=== PATIENT | male | born 1940 | race Caucasian/White ===

== ENCOUNTER 2018-10-26 12:19 | Inpatient (IN) | payer OTHER, MEDICAID ==
[~2018-10-26] VITALS: Ht 157.5 cm; Wt 53.1 kg
[2018-10-26 12:19] VITALS: BP_SYST 101
--- NOTE | 2018-10-26 12:20 | NUR ---
BROUGHT IN BY [facility], PLACED IN BED #2 AND TRIAGED. REPORT GIVEN TO RUBY
--- NOTE | 2018-10-26 12:22 | NUR ---
Pt bib EMS from [facility] for evaluation of abdnormal lab values.
--- NOTE | 2018-10-26 12:51 | NUR ---
calling joshua turner to inform them physician who sent pt over does not have privileges here, calling to see if needed who would we call for admission. Joshua Turner RN will call back to inform who will admit pt if needed. spoke to rosey
[2018-10-26 13:48] LABS: INR 1.1 (0.80-1.20)
[2018-10-26 14:00] LABS: BASOPHILS # (AUTO) 0.1 K/uL (0.0-0.2); BASOPHILS % (AUTO) 0.3 % (0.0-2.0); EOSINOPHILS # (AUTO) 0.2 K/uL (0.0-0.4); HEMATOCRIT 56.5 % (36-54); HEMOGLOBIN 18.6 g/dL (14.0-18.0); LYMPHOCYTES # (AUTO) 1.6 K/uL (1.0-5.5); LYMPHOCYTES % (AUTO) 9.6 % (20.5-51.5); MEAN CORPUSCULAR HEMOGLOBIN 32 pg (27-31); MEAN CORPUSCULAR HGB CONC 33 % (32-36); MEAN CORPUSCULAR VOLUME 97 fL (79.0-98.0); MONOCYTES # (AUTO) 1.4 K/uL (0.0-1.0); MONOCYTES % (AUTO) 8.8 % (1.7-9.3); NEUTROPHILS # (AUTO) 13.1 K/uL (1.8-7.7); NEUTROPHILS % (AUTO) 80.3 % (40.0-70.0); PLATELET COUNT (AUTO) 226 K/uL (130-430); RED CELL DISTRIBUTION WIDTH 14.2 % (9.0-15.0); WHITE BLOOD COUNT (AUTO) 16.3 K/uL (4.8-10.8)
[2018-10-26 14:08] LABS: ANION GAP 11 (5-15); CALCIUM 12.3 mg/dL (8.4-11.0); CHLORIDE 98 mmol/L (98-107); CREATININE 1.64 mg/dL (0.55-1.30); GLUCOSE 85 mg/dL (70-99); POTASSIUM 5.4 mmol/L (3.5-5.1); SODIUM SERUM 126 mmol/L (136-145)
[2018-10-26 14:12] LABS: UREA NITROGEN, BLOOD 103 mg/dL (8-21)
[2018-10-26 14:13] LABS: ALANINE AMINOTRANSFERASE 30 U/L (12-78); ALBUMIN 3.6 g/dL (3.4-4.8); ASPARTATE AMINOTRANSFERASE 23 U/L (10-37); TOTAL BILIRUBIN 0.9 mg/dL (0.0-1.0)
[2018-10-26] MEDS ORDERED: SPIR50TA5 PO (14:16)
[2018-10-26] MEDS ORDERED: GABA800T PO (14:16)
[2018-10-26] MEDS ORDERED: GABA-533 PO (14:16)
[2018-10-26] MEDS ORDERED: DOCU-144 PO (14:16)
[2018-10-26] MEDS ORDERED: ASPI-1153 PO (14:16)
[2018-10-26] MEDS ORDERED: DET2 PO (14:16)
--- NOTE | 2018-10-26 14:16 | NUR ---
Medication reconciliation completed with information provided by COLTON DYKES. Any prior medication reconciliation on file was reviewed and corrected.
[2018-10-26] MEDS ORDERED: NACL 0.9% 2,000 ML IV ONE (14:30)
[2018-10-26] MEDS ORDERED: SODIUM POLYSTYRENE SULFONATE 15 GM/60 ML UDBTL PO ONE (14:45)
[2018-10-26] MEDS ORDERED: PIPERACILLIN/TAZO 3.375 GM in NS 50 ML IV ONE (14:45)
--- NOTE | 2018-10-26 14:47 | NUR ---
Patient transported to radiology via gurney, accompanied by rad staff .
[2018-10-26] MEDS ORDERED: PIPERACILLIN/TAZOBACTAM 3.375 GM/VIAL (ZOSYN) IV ONE (14:54)
--- NOTE | 2018-10-26 15:20 | NUR ---
URINE SPECIMEN COLLECTED .
--- NOTE | 2018-10-26 15:30 | NUR ---
ADMISSION NOTE Received patient from ER via gurney. Patient admitted with diagnosis of Dehydration. Patient is awake, alert, oriented X 2. Patient oriented to hospital room, call light, toileting, pain management and safety-teach back done. Patient informed that Matti will be his nurse and that their room number is 123A. Personal belongings checked and Belongings List documented. Call light within reach.
[2018-10-26 15:48] VITALS: BP_SYST 101
--- NOTE | 2018-10-26 16:20 | NUR ---
Patient will be admitted to care of . Admitted to TELEMETRY unit. Will go to room 123A. Summary report printed. Report will be given at bedside.
--- NOTE | 2018-10-26 16:48 | NUR ---
PATIENT REFUSED PHOTOGRAPHY DENUDATION ON HIS SCROTUM, DR ABREU WAS HERE AND IS AWARE. SAID IT IS OKAY.
[2018-10-26 16:59] LABS: BILIRUBIN,URINE NEGATIVE (NEGATIVE); CLARITY/URINE SL CLOUDY (CLEAR); COLOR,URINE YELLOW (YELLOW); GLUCOSE,URINE NEGATIVE (NEGATIVE); KETONES,URINE NEGATIVE (NEGATIVE); LEUKOCYTE ESTERASE ,URINE 3+ (NEGATIVE); NITRITE, URINE POSITIVE (NEGATIVE); PROTEIN URINE NEGATIVE (NEGATIVE); UROBILINOGEN,URINE 0.2 (0.2-1.0)
[2018-10-26 17:01] LABS: BLOOD, URINE TRACE (NEGATIVE)
[2018-10-26 17:16] LABS: BACTERIA,URINE MANY /HPF (None Seen); WBC,URINE 20-50 /HPF (0-3)
[2018-10-26 17:17] LABS: MUCUS,URINE None Seen /LPF (None Seen); URINE AMORPHOUS URATE 3+ /HPF (None Seen)
[2018-10-26] MEDS ORDERED: cefTRIAXone 1 GM in D5W 50 ML IV SCH (18:00)
[2018-10-26] MEDS: D5NS 1,000 ML IV SCH (19:09)
--- NOTE | 2018-10-26 19:45 | NUR ---
CLOSING NOTES, PT HAS BEEN STABLE SINCE ARRIVAL TO THE UNIT. NO C/O PAIN. BOLUS NS COMPLETED. ENDORSED TO NIGHT RN.
--- NOTE | 2018-10-26 20:00 | NUR ---
INITIAL NOTES: EATING DINNER SLOWLY DURING REPORT. DENIES PAIN NOR SOB. IVF INFUSING WELL. SEE ASSESSMENT FOR MORE DETAILS.
[2018-10-26 20:30] VITALS: BP_SYST 122
[2018-10-26] MEDS: OXYBUTYNIN CHLORIDE 5 MG TABLET PO SCH ×2 (21:00→22:36)
[2018-10-26] MEDS ORDERED: TOLTERODINE TARTRATE 2 MG TABLET(DETROL) PO SCH (21:00)
--- NOTE | 2018-10-26 22:30 | NUR ---
meds admin: all due meds given without problem.
[2018-10-26] MEDS: GABAPENTIN 400 MG CAPSULE PO SCH (22:36)
[2018-10-27] VITALS: BP_SYST 100
[2018-10-27] MEDS: D5NS 1,000 ML IV SCH ×2 (00:49→06:53)
--- NOTE | 2018-10-27 06:30 | NUR ---
CLOSING:HAD 2X LARGE STOOL WITH URINE. SHANE CARE DONE. ALL NEEDS WERE ATTENDED. SR W/ PAC. NO ACUTE DISTRESS.
--- NOTE | 2018-10-27 06:50 | NUR ---
Nutrition Update Facundo Scale 15 noted. Pt admitted for Severe Dehydration, possible Sepsis Diet: Mechanical soft BMI: 21.4 kg/m2 RD to follow per nutrition care standards.
[2018-10-27 07:39] LABS: ANION GAP 9 (5-15); CALCIUM 9.5 mg/dL (8.4-11.0); CHLORIDE 110 mmol/L (98-107); CREATININE 1.12 mg/dL (0.55-1.30); GLUCOSE 73 mg/dL (70-99); POTASSIUM 3.9 mmol/L (3.5-5.1); SODIUM SERUM 137 mmol/L (136-145); UREA NITROGEN, BLOOD 65 mg/dL (8-21)
[2018-10-27 07:40] VITALS: BP_SYST 104
[2018-10-27 07:48] LABS: BASOPHILS % (AUTO) 0.3 % (0.0-2.0); EOSINOPHILS # (AUTO) 0.3 K/uL (0.0-0.4); EOSINOPHILS % (AUTO) 3.1 % (0.0-4.0); HEMATOCRIT 43.1 % (36-54); HEMOGLOBIN 14.3 g/dL (14.0-18.0); LYMPHOCYTES # (AUTO) 1.3 K/uL (1.0-5.5); LYMPHOCYTES % (AUTO) 12.5 % (20.5-51.5); MEAN CORPUSCULAR HEMOGLOBIN 32 pg (27-31); MEAN CORPUSCULAR HGB CONC 33 % (32-36); MEAN CORPUSCULAR VOLUME 96 fL (79.0-98.0); MONOCYTES # (AUTO) 1.2 K/uL (0.0-1.0); MONOCYTES % (AUTO) 11.2 % (1.7-9.3); NEUTROPHILS # (AUTO) 7.7 K/uL (1.8-7.7); NEUTROPHILS % (AUTO) 72.9 % (40.0-70.0); PLATELET COUNT (AUTO) 177 K/uL (130-430); RED BLOOD CELL COUNT(AUTO) 4.49 MIL/uL (4.2-6.2); RED CELL DISTRIBUTION WIDTH 13.9 % (9.0-15.0)
[2018-10-27 08:07] LABS: WHITE BLOOD COUNT (AUTO) 10.5 K/uL (4.8-10.8)
[2018-10-27] MEDS: DOCUSATE SODIUM 100 MG CAPSULE PO SCH (08:19)
[2018-10-27] MEDS: GABAPENTIN 400 MG CAPSULE PO SCH ×2 (08:20→20:52)
[2018-10-27] MEDS: ASPIRIN 81 MG TABLET(ECOTRIN) PO SCH (08:20)
[2018-10-27] MEDS: OXYBUTYNIN CHLORIDE 5 MG TABLET PO SCH ×2 (08:20→20:52)
--- NOTE | 2018-10-27 09:30 | NUR ---
Mobility Walked to the bathroom with assist weak unsteady gait but tolerated denies any dizziness.
[2018-10-27 12:15] VITALS: BP_SYST 126
--- NOTE | 2018-10-27 14:10 | NUR ---
PATIENT RESTING: Patient resting quietly. No acute distress noted. Vital signs within normal range.
--- NOTE | 2018-10-27 15:40 | NUR ---
SKIN CARE/COMFORT Perineal care given, with mild redness scrotal area/perineal care kept dry/clean skin cream barrier applied.
--- NOTE | 2018-10-27 15:45 | NUR ---
Endorsed patient to VIVIEN Guzman.
--- NOTE | 2018-10-27 15:50 | NUR ---
NURSING. APPROACHED PATIENT, HE'S ALERT, HX OF CVA, IV SITE IN RIGHT HAND LEAKING, AND D/CD. ATTEMPTED TO INSERT AN IV 2 TIMES, NO SUCCESS. BROUGHT IN VEIN FINDER TO EVALUATE THE LOCATION OF AN IV, CHARGE NURSE CAME IN AND STILL UNABLE TO GET A NEW IV.
[2018-10-27 16:47] VITALS: BP_SYST 127
--- NOTE | 2018-10-27 18:20 | NUR ---
MIDLINE. PATIENT MADE KNOWN OF PLAN OF CARE. CONSENT WILL BE SIGNED AFTER READING CONSENT FORM.
--- NOTE | 2018-10-27 19:25 | NUR ---
CHANGE OF SHIFT; pt. awake, alert, on contact isolation for MRSA of nares. asked to sign the consent for midline cath placement, nursing supervisor gear repair aware. fall risk precautions. call light within reach. IV antibiotic due @ 1800 not given, IVF on hold.
--- NOTE | 2018-10-27 20:00 | NUR ---
NOTES: pt. awake, alert, follows simple commands, pt. made aware of isolation precautions. noted rt. sided weakness. VS checked. bed alarm on, call light at bedside. in no acute distress, on room air.
[2018-10-27] MEDS: MUPIROCIN 2% TOPICAL OINTMENT 22 GM NS SCH (20:53)
[2018-10-27 21:00] VITALS: BP_SYST 118
--- NOTE | 2018-10-27 21:00 | NUR ---
NOTES: pt. checked and was already sleeping, awakened for his medications. repositioned, does not want to turn on his side. still waiting for the RN who will insert the midline catheter.
--- NOTE | 2018-10-27 23:00 | NUR ---
NOTES: follow up with the nursing dental laboratory supervisor about the nurse who will insert mid line, since he or she is not here yet.
--- NOTE | 2018-10-28 | NUR ---
NOTES: midline/picc line nurse Christian said he will be here this am, since the order was late and they have a cut off time of 2 pm. will inform charge nurse Tabitha.
--- NOTE | 2018-10-28 02:01 | NUR ---
NOTES: pt. checked, sleeping comfortably, HOB elevated. contact isolation observed. no IV access till this am.
--- NOTE | 2018-10-28 04:00 | NUR ---
NOTES: pt. remain sleeping. condition unchanged.
[2018-10-28 04:21] VITALS: BP_SYST 93
--- NOTE | 2018-10-28 05:15 | NUR ---
NOTES: complete am care done, incontinent of urine, kept dry, saji care, Z guard on coccyx and scrotal area. able to help turn , rt. sided weakness. contact isolation observed for MRSA nares. call light at bedside.
--- NOTE | 2018-10-28 06:45 | NUR ---
CLOSING NOTES; pt. went back to sleep, still waiting for midline placement this am. condition unchanged. safety measures in place. for further care and assistance. call light within reach.
--- NOTE | 2018-10-28 07:35 | NUR ---
OPENING NOTE Patient resting in the bed. No acute distress. AAO x 4. Denied of pain. Skin warm and dry to touch. No IV access at this time, still waiting for midline nurse to come for insertion. Discussed the safety issue, use call light when needs help, and plan of care, verbally understanding. On contact isolation for MRSA of nares. Safety measure maintained. Call light within reached. Bed locked in low position, side rail sup, bed alarm on. Will continue to monitor.
[2018-10-28 07:40] VITALS: BP_SYST 98
--- NOTE | 2018-10-28 07:53 | NUR ---
MIDLINE INSERTION STARTED BY MIDLINE NURSE-BETTE
--- NOTE | 2018-10-28 08:30 | NUR ---
MIDLINE INSERTION COMPLETED A new midline at GENESIS with 2 lumen, covered with clean and dry transparent dressing, no bleeding noted. Will continue to monitor.
--- NOTE | 2018-10-28 08:54 | NUR ---
CALLED PHARMACY REGARDING ROCEPHIN NOT GIVEN LAST NIGHT Called to pharmacy and spoke with Bonita regarding the patient did not receive the Rocephin yesterday due to no IV access and midline available now. Bonita stated that she will check the order.
--- NOTE | 2018-10-28 09:20 | NUR ---
BREAKFAST Patient eating breakfast with upright position, stated that do not want to take medication until finished breakfast. Safety measure maintained. Call light within reached. Continue to monitor.
[2018-10-28] MEDS ORDERED: cefTRIAXone 1 GM in D5W 50 ML IV SCH (10:00)
[2018-10-28] MEDS: OXYBUTYNIN CHLORIDE 5 MG TABLET PO SCH ×3 (10:05→22:14)
[2018-10-28] MEDS: GABAPENTIN 400 MG CAPSULE PO SCH ×2 (10:05→21:46)
[2018-10-28] MEDS: MUPIROCIN 2% TOPICAL OINTMENT 22 GM NS SCH ×2 (10:05→21:48)
[2018-10-28] MEDS: ASPIRIN 81 MG TABLET(ECOTRIN) PO SCH (10:05)
[2018-10-28] MEDS: DOCUSATE SODIUM 100 MG CAPSULE PO SCH ×2 (10:05→10:39)
[2018-10-28] MEDS: D5NS 1,000 ML IV SCH ×2 (10:06→21:48)
--- NOTE | 2018-10-28 10:25 | NUR ---
PT SERVICE Pt helped patient out of bed and patient able to standing at bedside not walking at this time. Continue to monitor.
[2018-10-28 11:07] VITALS: BP_SYST 119
--- NOTE | 2018-10-28 12:10 | NUR ---
LUNCH Patient eating lunch with upright position, aspiration precaution maintained. Midline intact, IVF infusing well. Continue on contact isolation. Safety measure maintained. Call light within reached. Bed locked in low position, side rails up, bed alarm on. Continue to monitor.
--- NOTE | 2018-10-28 13:40 | NUR ---
SEEN AND EXAMINED BY LENORE ZENG.
--- NOTE | 2018-10-28 15:25 | NUR ---
ROUND Patient resting in the bed. No acute distress. Midline intact, IVF infusing well. Continue on contact isolation. Safety measure maintained. Call light within reached. Bed locked in low position, side rails up, bed alarm on. Continue to monitor.
[2018-10-28 15:49] VITALS: BP_SYST 100
--- NOTE | 2018-10-28 15:53 | NUR ---
PAGED PAGED JERAMY CRONIN AT [phone] SPOKE WITH TONO.
--- NOTE | 2018-10-28 16:19 | NUR ---
Dietitian Recommendations 1. Continue Mechanical Soft diet 2. Ensure Enlive daily. This will provide 350kcal and 20gm of protein. Please see Nutrition Assessment for further details. LT, RD
--- NOTE | 2018-10-28 17:00 | NUR ---
E COLI, ESBL OF URINE Shawn Foster covering for Dr. Garrido was notify by charge nurse, Britni, with order received.
--- NOTE | 2018-10-28 18:53 | NUR ---
CLOSING NOTE Patient resting in the bed. No acute distress. No c/o pain. Skin warm and dry to touch. Midline intact to GENESIS, no redness, no swelling, no drainage, covered with clean and dry dressing. On contact isolation for MRSA of nares, E coli/ESBL of urine. All needs met. Safety measure maintained. Call light within reached. Bed locked in low position, side rail sup, bed alarm on. Will endorse to night nurse.
--- NOTE | 2018-10-28 19:41 | NUR ---
Initial note: Received report from angelica RN. Patient is awake, no distress noted. Tolerating room air. GENESIS midline is receiving IV fluids as ordered, site is patent and benign, dressing is clean, dry, intact. Contact isolation in place for MRSA nares, ESBL/E. coli urine. Call light with patient. Bed locked in lowest position, side rails raised x3, bed alarm on. Will continue with plan of care.
[2018-10-28 20:00] VITALS: BP_SYST 143
[2018-10-28] MEDS: MEROPENEM 1 GM in NS 100 ML IV SCH (21:48)
--- NOTE | 2018-10-28 21:51 | NUR ---
Med pass: Scheduled medications administered at this time. Patient refused Ditropan despite education regarding indications and side effects. Call light with patient. Will continue monitoring.
[2018-10-28] MEDS ORDERED: MEROPENEM 1 GM IVPB PREMIX 50 ML IV SCH (22:00)
--- NOTE | 2018-10-29 00:20 | NUR ---
Rounds: Patient is resting in bed, sleeping. No acute distress. Tolerating room air, breathing is even and unlabored. IV fluids infusing as ordered to GENESIS midline, no infiltration noted. Call light is with patient. Will continue to monitor.
[2018-10-29 00:24] VITALS: BP_SYST 141
--- NOTE | 2018-10-29 03:41 | NUR ---
Rounds: Patient is sleeping comfortably in bed. No acute distress. Even and unlabored respirations on room air. IV fluids infusing as ordered. Call light with patient. Will continue to monitor.
[2018-10-29] MEDS: D5NS 1,000 ML IV SCH (05:44)
[2018-10-29] MEDS: MEROPENEM 1 GM in NS 100 ML IV SCH ×2 (05:44→11:47)
--- NOTE | 2018-10-29 06:28 | NUR ---
Closing note: Patient is awake watching TV. No acute distress. IV fluids infusing as ordered to GENESIS midline, site is patent and benign. All needs met. Safety and fall precautions observed. Will endorse care to dayshift RN.
[2018-10-29 06:30] LABS: BASOPHILS % (AUTO) 0.5 % (0.0-2.0); EOSINOPHILS # (AUTO) 0.6 K/uL (0.0-0.4); EOSINOPHILS % (AUTO) 5.9 % (0.0-4.0); HEMATOCRIT 43.5 % (36-54); HEMOGLOBIN 14.6 g/dL (14.0-18.0); LYMPHOCYTES # (AUTO) 1.7 K/uL (1.0-5.5); MEAN CORPUSCULAR HEMOGLOBIN 32 pg (27-31); MEAN CORPUSCULAR HGB CONC 34 % (32-36); MEAN CORPUSCULAR VOLUME 96 fL (79.0-98.0); NEUTROPHILS # (AUTO) 6.1 K/uL (1.8-7.7); NEUTROPHILS % (AUTO) 64.6 % (40.0-70.0); PLATELET COUNT (AUTO) 163 K/uL (130-430); RED BLOOD CELL COUNT(AUTO) 4.52 MIL/uL (4.2-6.2); WHITE BLOOD COUNT (AUTO) 9.5 K/uL (4.8-10.8)
[2018-10-29 07:44] LABS: ALANINE AMINOTRANSFERASE 21 U/L (12-78); ALBUMIN 2.4 g/dL (3.4-4.8); ANION GAP 8 (5-15); ASPARTATE AMINOTRANSFERASE 19 U/L (10-37); CALCIUM 9.2 mg/dL (8.4-11.0); CHLORIDE 108 mmol/L (98-107); CREATININE 0.86 mg/dL (0.55-1.30); GLUCOSE 87 mg/dL (70-99); POTASSIUM 3.6 mmol/L (3.5-5.1); SODIUM SERUM 137 mmol/L (136-145); TOTAL BILIRUBIN 0.3 mg/dL (0.0-1.0); UREA NITROGEN, BLOOD 24 mg/dL (8-21)
[2018-10-29 08:00] VITALS: BP_SYST 134
--- NOTE | 2018-10-29 08:00 | NUR ---
Patient is A/Ox4. Tolerating room air. GENESIS midline, IV fluids as ordered, site is intact and patent. Contact iso. coli urine. Call light with patient, Bed locked in lowest position with alarm on and side rails raised x3.
[2018-10-29] MEDS: OXYBUTYNIN CHLORIDE 5 MG TABLET PO SCH ×2 (08:43→08:51)
[2018-10-29] MEDS: GABAPENTIN 400 MG CAPSULE PO SCH (08:43)
[2018-10-29] MEDS: ASPIRIN 81 MG TABLET(ECOTRIN) PO SCH (08:43)
[2018-10-29] MEDS: MUPIROCIN 2% TOPICAL OINTMENT 22 GM NS SCH (08:43)
[2018-10-29] MEDS: DOCUSATE SODIUM 100 MG CAPSULE PO SCH (09:00)
--- NOTE | 2018-10-29 10:00 | NUR ---
PATIENT IS TURNED AND REPOSITIONED FOR COMFORT.
--- NOTE | 2018-10-29 10:31 | NUR ---
SNF ARRANGING: CALL COLTON DYKES AND SPOKE TO AUGUST#[phone], REGARDING DC BACK TO SNF WITH ISOLATION ROOM FOR POSITIVE ESBL OF URINE. AUGUST HAS STATED THAT SHE WILL NEED TO CONTACT HER "DON" FOR ARRANGING THE ISOLATION BED. THEN SHE WILL CALL US BACK.
[2018-10-29] MEDS ORDERED: MERI500 IV (11:26)
[2018-10-29 11:38] VITALS: BP_SYST 134
--- NOTE | 2018-10-29 11:48 | NUR ---
Transport arranged to [facility] at 1 pm ,spoke to Elyse
[2018-10-29 12:00] VITALS: BP_SYST 126
--- NOTE | 2018-10-29 12:15 | NUR ---
REPORT GIVEN TO HARMEET IS COLTON DYKES.
== END 2018-10-29 13:30 | DRG 871 ==
LOC: SED 12:19 → STU 14:49 → SMU 10-27 11:44
PROVIDERS: ADMIT Family Medicine; ATTEND Family Medicine
PROC: 05HY33Z Insertion of Infusion Device into Upper Vein, Percutaneous Approach (ICD-10-PCS; principal; 2018-10-28)
PROC: B54NZZA Ultrasonography of Left Upper Extremity Veins, Guidance (ICD-10-PCS; 2018-10-28)
DX: A41.9 Sepsis, unspecified organism (principal); N17.0 Acute kidney failure with tubular necrosis; E87.1 Hypo-osmolality and hyponatremia; E87.2 Acidosis; E46 Unspecified protein-calorie malnutrition; I69.351 Hemiplegia and hemiparesis following cerebral infarction affecting right dominant side; N39.0 Urinary tract infection, site not specified; E86.0 Dehydration; Z16.12 Extended spectrum beta lactamase (ESBL) resistance; B96.20 Unspecified Escherichia coli [E. coli] as the cause of diseases classified elsewhere; G62.9 Polyneuropathy, unspecified; E87.5 Hyperkalemia; E83.52 Hypercalcemia; N40.0 Benign prostatic hyperplasia without lower urinary tract symptoms; Z79.82 Long term (current) use of aspirin; Z79.899 Other long term (current) drug therapy; Z88.5 Allergy status to narcotic agent; Z88.8 Allergy status to other drugs, medicaments and biological substances
CPT/HCPCS: 36415; 71045; 76770; 80048; 80053; 81000-TC; 83605; 84484; 85025; 85610-TC; 85730-TC; 87040-TC; 87081; 87086; 87186-TC; 93005; 97116-GP; 97530-GP; 99285; C1751; G0378; J0696; J2185; J2543; J7030; J7042; J7060

== ENCOUNTER 2019-01-29 20:56 | Inpatient (IN) | payer OTHER, MEDICAID ==
[~2019-01-29] VITALS: Ht 175.3 cm; Wt 53.5 kg
[~2019-01-29 20:56] MED LIST: ASPI-1153 PO; DET2 PO; DOCU-144 PO; GABA-533 PO; GABA800T PO; MERI500 IV; SPIR50TA5 PO
[2019-01-29 21:10] VITALS: BP_SYST 124
--- NOTE | 2019-01-29 21:10 | NUR ---
Pt BIB ACLS with c/o increasing SOB and ALOC. Pt alert to name but does not communicate or follow commands. Pt comes from Joshua Thomas. Per ACLS, pt ws placed on non rebreather at 15L with 100% O2 sat. Per EMS, pt has history of renal failure and CVA of the right side. Upon inspection, shallow respirations but clear bilateral lung sounds.
--- NOTE | 2019-01-29 21:13 | NUR ---
ER Dr. Earl at bedside examining patient.
--- NOTE | 2019-01-29 21:57 | NUR ---
radiology at bedside for chest xray.
[2019-01-29] MEDS ORDERED: DILTIAZEM HCL 25 MG/5 ML VIAL IVP ONE (22:00)
--- NOTE | 2019-01-29 22:03 | NUR ---
respiratory at bedside getting ABG's
--- NOTE | 2019-01-29 22:04 | NUR ---
labratory at bedside.
[2019-01-29 22:16] LABS: BASOPHILS % (AUTO) 0.3 % (0.0-2.0); HEMATOCRIT 52.9 % (36-54); LYMPHOCYTES # (AUTO) 0.5 K/uL (1.0-5.5); LYMPHOCYTES % (AUTO) 3.5 % (20.5-51.5); MEAN CORPUSCULAR HEMOGLOBIN 31 pg (27-31); MEAN CORPUSCULAR HGB CONC 32 % (32-36); MEAN CORPUSCULAR VOLUME 96 fL (79.0-98.0); MONOCYTES # (AUTO) 0.7 K/uL (0.0-1.0); NEUTROPHILS # (AUTO) 11.9 K/uL (1.8-7.7); NEUTROPHILS % (AUTO) 91.2 % (40.0-70.0); PLATELET COUNT (AUTO) 215 K/uL (130-430); RED CELL DISTRIBUTION WIDTH 17.2 % (9.0-15.0); WHITE BLOOD COUNT (AUTO) 13.1 K/uL (4.8-10.8)
[2019-01-29 22:30] LABS: INR 1.5 (0.80-1.20)
[2019-01-29 22:45] LABS: ANION GAP 14 (5-15); CALCIUM 11.4 mg/dL (8.4-11.0); CHLORIDE 111 mmol/L (98-107); CREATININE 1.56 mg/dL (0.55-1.30); GLUCOSE 146 mg/dL (70-99); POTASSIUM 4.9 mmol/L (3.5-5.1); SODIUM SERUM 147 mmol/L (136-145); UREA NITROGEN, BLOOD 61 mg/dL (8-21)
[2019-01-29 22:52] LABS: ALANINE AMINOTRANSFERASE 39 U/L (12-78); ALBUMIN 3.4 g/dL (3.4-4.8); ASPARTATE AMINOTRANSFERASE 35 U/L (10-37); TOTAL BILIRUBIN 1.9 mg/dL (0.0-1.0)
--- NOTE | 2019-01-29 23:10 | NUR ---
Per Libby, Medication reconciliation completed with information provided by Joshua Thomas. Any prior medication reconciliation on file was reviewed and corrected.
[2019-01-29 23:15] LABS: PROTHROMBIN TIME 15.4 SECS (9.5-12.5)
[2019-01-29] MEDS ORDERED: ASPIRIN 81 MG TABLET(ECOTRIN) PO ONE (23:15)
--- NOTE | 2019-01-29 23:50 | NUR ---
Spoke to Destini Jung, durable power of sports attorney, about DNR status for pt. SHe wishes for comfort measures only at this time. Dr. Earl aware and spoke with Destini.
--- NOTE | 2019-01-30 00:15 | NUR ---
Assisted digital technician with pt to radiology via gurney. Pt tolerated well on 15L non rebreather.
[2019-01-30] MEDS ORDERED: DILTIAZEM HCL 25 MG/5 ML VIAL IVP ONE ×2 (02:15→20:00)
--- NOTE | 2019-01-30 02:42 | NUR ---
Medicated pt. Pt HR 144. Pt tolerated well.
--- NOTE | 2019-01-30 04:09 | NUR ---
Pt resting in bed on 15L via non rebreather mask. Pt in no sign of distress.
--- NOTE | 2019-01-30 06:50 | NUR ---
Patient resting quietly. No acute distress noted.
[2019-01-30] MEDS ORDERED: cefTRIAXone 1 GM IVPB PREMIX 50 ML IV ONE (07:30)
[2019-01-30] MEDS ORDERED: NACL 0.9% 1,000 ML IV SCH (07:30)
[2019-01-30] MEDS ORDERED: VANCOMYCIN HCL 1 GM/NS PREMIX 250 ML IV SCH (07:30)
--- NOTE | 2019-01-30 07:30 | NUR ---
Report from Martha Wesley RN
--- NOTE | 2019-01-30 08:00 | NUR ---
Care endorsed to VIVIEN Whittaker.
[2019-01-30] MEDS ORDERED: VANCOMYCIN HCL 1000 MG/VIAL IV ONE (08:03)
--- NOTE | 2019-01-30 10:27 | NUR ---
Patient will be admitted to care of [facility]. Admitted to Tele unit. Will go to room 116A. Belongings list completed. Complete and up to date summary report printed. SBAR report to be given at bedside with opportunity for questions. Transfer to Tele via ACLS protocol. Licensed nurse present. IV present no signs or symptoms of infiltration.
--- NOTE | 2019-01-30 10:40 | NUR ---
ADMISSION NOTE Received patient from ER via [facility], received report from BETTE PUGA. Patient admitted with diagnosis of PNA/AFIB. Patient oriented to hospital routine, call light, toileting and safety-patient verbalized understanding.
--- NOTE | 2019-01-30 10:41 | NUR ---
CONSULTATION PAGED REASON FOR CONSULTATION:A-FIB WAS CONSULT CALLED?Y PERSON WHO WAS NOTIFIED:RHODA CONSULTING PHYSICIAN:KHADAR BUCHANAN TOURIST AGENT SPECIALTY:CARDIO TOURIST AGENT PHONE NUMBER:[phone] REQUESTING PHYSICIAN:GARRY COWART
[2019-01-30 10:42] VITALS: BP_SYST 107
[2019-01-30] MEDS ORDERED: ACETAMINOPHEN 325 MG TABLET PO PRN (16:00)
[2019-01-30] MEDS ORDERED: ONDANSETRON HCL 4 MG/2 ML VIAL IVP PRN (16:00)
[2019-01-30] MEDS ORDERED: LORazepam 2 MG/ML VIAL IVP PRN (16:00)
--- NOTE | 2019-01-30 16:09 | NUR ---
CONSULTATION PAGED REASON FOR CONSULTATION:RENAL FAILURE WAS CONSULT CALLED?Y PERSON WHO WAS NOTIFIED:CONRAD CONSULTING PHYSICIAN:GAGAN MABRY (DOMENICO BOYKIN ORACLE APPLICATION ARCHITECT) COIL PLACER SPECIALTY:NEPHRO COIL PLACER PHONE NUMBER:[phone] REQUESTING PHYSICIAN:GARRY COWART
--- NOTE | 2019-01-30 16:23 | NUR ---
CONSULTATION PAGED REASON FOR CONSULTATION:PNEUMONIA WAS CONSULT CALLED?Y PERSON WHO WAS NOTIFIED:CONRAD CONSULTING PHYSICIAN:BEAN WILLIS PRODUCTION CONTROL EXPERT SPECIALTYINFECTIOUS DISEASE: PRODUCTION CONTROL EXPERT PHONE NUMBER:[phone] REQUESTING PHYSICIAN:GARRY COWART
[2019-01-30] MEDS: D5/0.45 NS 1,000 ML IV SCH (17:20)
--- NOTE | 2019-01-30 17:20 | NUR ---
IVF: Start D5 1/2 NS IVF at 100 ml/hr infusing well via left AC # 20G.
[2019-01-30] MEDS: cefTRIAXone 1 GM in D5W 50 ML IV SCH (17:24)
--- NOTE | 2019-01-30 17:26 | NUR ---
A-Fib /w RVR: Patient is asymptomatic, Tele shows A-fib 140-150,GH=737/74, SAT O2=. INFORM DR. GARRY HUNTER AND HE STATES HE WILL PUT A NEW ORDER IN. WILL F/U ON THAT ORDER.
[2019-01-30 17:32] VITALS: BP_SYST 115
[2019-01-30] MEDS ORDERED: DILTIAZEM HCL 30 MG TABLET PO ONE (18:15)
[2019-01-30] MEDS ORDERED: DILTIAZEM HCL 30 MG TABLET ONE (18:32)
--- NOTE | 2019-01-30 18:49 | NUR ---
Closing note: Patient is stable, but still ruin A-Fib with RVR /w LZ=039, Cardizem given 30 mg PO. Will continue monitor.
--- NOTE | 2019-01-30 19:40 | NUR ---
PATIENT RECEIVED WITH DR ONEILL THE CIRCUIT DESIGN ENGINEER SEEN PATIENT AND WITH ORDERS TO TRANSFER PATIENT TO ICU FOR HIGHER LEVEL OF CARE,WILL BE STARTED ON CARDIZEM DRIP.CHARGE NURSE IS AWARE AND IS ARRANGING THE TRANSFER.
[2019-01-30 20:00] VITALS: BP_SYST 141
[2019-01-30] MEDS ORDERED: ENOXAPARIN SODIUM 40 MG/0.4 ML SYRINGE SUBCUT ONE (20:00)
[2019-01-30] MEDS ORDERED: DIGOXIN 0.5 MG/2 ML AMP IVP ONE (20:00)
--- NOTE | 2019-01-30 20:00 | NUR ---
PAGED PAGED DR. ONEILL, LEFT MESSAGE WITH EXCHANGE AND CALL BACK NUMBER
[2019-01-30] MEDS: FUROSEMIDE 20 MG/2 ML VIAL IVP ONE ×3 (20:30→21:08)
[2019-01-30 21:23] VITALS: BP_SYST 129
--- NOTE | 2019-01-30 21:23 | NUR ---
PATIENT TRANSFERED TO ICU PER PATEL AND REPORT GIVEN TO VIVIEN CARBAJAL
--- NOTE | 2019-01-30 21:23 | NUR ---
[facility]TELE A 78 YO W MALE WITH DIAGNOSIS OF PNEUMONIA/ AFIB. PT CONFUSED, SLOW TO RESPOND, NON-VERBAL. PLACED ON O2 AT 2L/MIN/NC. PT IS DNR. BREATH SOUNDS WITH RALES AND RHONCHI. APNEIC PERIODS NOTED. POX RUNS FROM HIGH 80'S TO 99%. BOWEL SOUNDS (+). AFIB ON THE MONITOR. PLACED ON CARDIZEM DRIP AT 10MG/HR. PULSES PALPABLE. SKIN W/D. SOME ERYTHEMA NOTED ON BILATERAL LOWER EXTREMITIES, UNSTAGEABLE DTI ON LEFT ANKLE, AND DRY SCABS ON LEFT DOSTON. RIGHT ARM FLACCID, OTHER EXTREMITIES WEAK.
[2019-01-30 22:00] VITALS: BP_SYST 134
[2019-01-30] MEDS ORDERED: DILTIAZEM HCL 30 MG TABLET PO SCH (22:00)
[2019-01-30] MEDS: DILTIAZEM HCL 125 MG in D5W 100 ML IV SCH (22:03)
[2019-01-30] MEDS ORDERED: DILTIAZEM HCL 125 MG/25 ML VIAL IV ONE ×2 (22:11→22:18)
--- NOTE | 2019-01-30 22:15 | NUR ---
DR ONEILL CALLED, UPDATED ON STATUS. NEW ORDERS GIVEN TO BE IMPLEMENTED.
[2019-01-30] MEDS: GABAPENTIN 400 MG CAPSULE PO SCH (22:31)
[2019-01-30 23:00] VITALS: BP_SYST 132
--- NOTE | 2019-01-30 23:00 | NUR ---
FAROOQ CATH INSERTED PER ORDER.
[2019-01-31] VITALS (24 sets, daily range): BP systolic 91–123
--- NOTE | 2019-01-31 | NUR ---
REPOSITIONED. CARDIZEM DRIP STILL AT 10MG/HR.
[2019-01-31] MEDS ORDERED: FUROSEMIDE 20 MG/2 ML VIAL IVP ONE (00:09)
--- NOTE | 2019-01-31 00:32 | NUR ---
LASIX 20 MG IVP GIVEN PER ORDER.
[2019-01-31] MEDS ORDERED: FUROSEMIDE 20 MG/2 ML VIAL ONE (00:43)
--- NOTE | 2019-01-31 00:50 | NUR ---
MICHELLE ROCHA. SPECIMEN SENT TO LAB FOR CREATININE URINE RANDOM, URINALYSIS PROFILE, AND URINE SODIUM RANDOM.
[2019-01-31 01:13] LABS: BILIRUBIN,URINE NEGATIVE (NEGATIVE); BLOOD, URINE 3+ (NEGATIVE); CLARITY/URINE CLEAR (CLEAR); COLOR,URINE YELLOW (YELLOW); GLUCOSE,URINE NEGATIVE (NEGATIVE); KETONES,URINE NEGATIVE (NEGATIVE); LEUKOCYTE ESTERASE ,URINE 3+ (NEGATIVE); NITRITE, URINE POSITIVE (NEGATIVE); PROTEIN URINE TRACE (NEGATIVE); UROBILINOGEN,URINE 0.2 (0.2-1.0)
[2019-01-31 01:23] LABS: BACTERIA,URINE MANY /HPF (None Seen); MUCUS,URINE 3+ /LPF (None Seen); RBC,URINE 50-80 /HPF (0-3); WBC,URINE >100 /HPF (0-3)
[2019-01-31] MEDS: D5/0.45 NS 1,000 ML IV SCH ×2 (02:55→16:18)
--- NOTE | 2019-01-31 04:00 | NUR ---
SLEPT FOR LONG PERIODS OF TIME. APNEIC EPISODES OBSERVED. DESATURATES. NO DISTRESS NOTED.
--- NOTE | 2019-01-31 06:00 | NUR ---
SLEPT WELL MOST OF NIGHT. NO DISTRESS NOTED. TURNED Q2 HRS. UO GOOD. CARDIZEM DRIP STILL AT 10 MG/HR REMAINS IN GUARDED CONDITION.
[2019-01-31 06:22] LABS: BASOPHILS # (AUTO) 0.1 K/uL (0.0-0.2); BASOPHILS % (AUTO) 0.5 % (0.0-2.0); HEMOGLOBIN 16.5 g/dL (14.0-18.0); LYMPHOCYTES # (AUTO) 0.7 K/uL (1.0-5.5); LYMPHOCYTES % (AUTO) 5.9 % (20.5-51.5); MEAN CORPUSCULAR HEMOGLOBIN 31 pg (27-31); MEAN CORPUSCULAR HGB CONC 32 % (32-36); MEAN CORPUSCULAR VOLUME 96 fL (79.0-98.0); MONOCYTES # (AUTO) 0.8 K/uL (0.0-1.0); MONOCYTES % (AUTO) 6.7 % (1.7-9.3); NEUTROPHILS # (AUTO) 10.6 K/uL (1.8-7.7); NEUTROPHILS % (AUTO) 86.9 % (40.0-70.0); PLATELET COUNT (AUTO) 169 K/uL (130-430); RED CELL DISTRIBUTION WIDTH 16.6 % (9.0-15.0); WHITE BLOOD COUNT (AUTO) 12.2 K/uL (4.8-10.8)
--- NOTE | 2019-01-31 07:45 | NUR ---
Opening Note Patient received difficult to arouse, but is arousable to pain stimuli. Patient on 3L oxygen via nasal cannula with stable VS at this time. Patient on tour narrator with a-fib. Patient on cardizem drip at 10 mg/hr. Patient has a peripheral IV. Patient has prabhakar catheter draining yellow urine. Dr. Arias at bedside and made aware of condition. New orders received and carried out.
[2019-01-31] MEDS: ASPIRIN 81 MG TABLET(ECOTRIN) PO SCH (09:00)
[2019-01-31] MEDS: DOCUSATE SODIUM 100 MG CAPSULE PO SCH (09:00)
[2019-01-31] MEDS: ENOXAPARIN SODIUM 40 MG/0.4 ML SYRINGE SUBCUT SCH ×2 (09:00→21:25)
[2019-01-31] MEDS: GABAPENTIN 400 MG CAPSULE PO SCH ×2 (09:00→21:24)
[2019-01-31 09:03] LABS: ERYTHROCYTE SEDIMENTATION RATE 1 MM/HR (0-15)
[2019-01-31 09:19] LABS: ALANINE AMINOTRANSFERASE 33 U/L (12-78); ALBUMIN 2.7 g/dL (3.4-4.8); ANION GAP 2 (5-15); ASPARTATE AMINOTRANSFERASE 21 U/L (10-37); C-REACTIVE PROTEIN QUANT 1.4 mg/dL (0-0.5); CALCIUM 9.5 mg/dL (8.4-11.0); CHLORIDE 109 mmol/L (98-107); CREATININE 1.05 mg/dL (0.55-1.30); GLUCOSE 139 mg/dL (70-99); PHOSPHORUS 2.7 mg/dL (2.7-4.5); SODIUM SERUM 142 mmol/L (136-145); TOTAL BILIRUBIN 0.9 mg/dL (0.0-1.0); UREA NITROGEN, BLOOD 46 mg/dL (8-21)
[2019-01-31 09:32] LABS: POTASSIUM 2.6 mmol/L (3.5-5.1)
--- NOTE | 2019-01-31 09:43 | NUR ---
Nutrition Update Facundo Scale 14 noted. Pt admitted for A-fib, PNA Diet: 2gmNa, finely chopped BMI: 17.4 kg/m2 RD to follow per nutrition care standards.
[2019-01-31] MEDS: DILTIAZEM HCL 125 MG in D5W 100 ML IV SCH (10:35)
[2019-01-31] MEDS ORDERED: POTASSIUM CHLORIDE 40 MEQ in NS 250 ML IV ONE ×2 (10:45→19:45)
[2019-01-31] MEDS: FUROSEMIDE 20 MG/2 ML VIAL IVP ONE (12:08)
--- NOTE | 2019-01-31 13:49 | NUR ---
Dr. Law notified regarding need for PICC line. Patient does not have family to consent to procedure. DPOA unable to be contacted. MD aware. okayed for PICC line insertion (medical necessity).
--- NOTE | 2019-01-31 13:50 | NUR ---
MD Rounds Dr. Law at bedside for examination. New orders received and carried out.
--- NOTE | 2019-01-31 14:40 | NUR ---
PICC line insertion PICC line RN at bedside for PICC insertion. Patient in no signs of distress.
[2019-01-31] MEDS: cefTRIAXone 1 GM in D5W 50 ML IV SCH (17:40)
--- NOTE | 2019-01-31 19:18 | NUR ---
Closing Note Patient endorsed to shift stacker RN using SBAR format. No signs of distress noted.
[2019-01-31 19:51] LABS: ALANINE AMINOTRANSFERASE 29 U/L (12-78); ALBUMIN 2.9 g/dL (3.4-4.8); ANION GAP 11 (5-15); ASPARTATE AMINOTRANSFERASE 28 U/L (10-37); CALCIUM 10.2 mg/dL (8.4-11.0); CHLORIDE 107 mmol/L (98-107); CREATININE 1.16 mg/dL (0.55-1.30); GLUCOSE 100 mg/dL (70-99); POTASSIUM 3.6 mmol/L (3.5-5.1); SODIUM SERUM 146 mmol/L (136-145); TOTAL BILIRUBIN 0.9 mg/dL (0.0-1.0); UREA NITROGEN, BLOOD 42 mg/dL (8-21)
[2019-02-01] VITALS (24 sets, daily range): BP systolic 94–146
[2019-02-01] MEDS: D5/0.45 NS 1,000 ML IV SCH ×3 (02:56→17:59)
[2019-02-01 07:01] LABS: BASOPHILS % (AUTO) 0.2 % (0.0-2.0); EOSINOPHILS # (AUTO) 0.1 K/uL (0.0-0.4); EOSINOPHILS % (AUTO) 0.9 % (0.0-4.0); HEMATOCRIT 47.1 % (36-54); HEMOGLOBIN 15.3 g/dL (14.0-18.0); LYMPHOCYTES # (AUTO) 0.8 K/uL (1.0-5.5); LYMPHOCYTES % (AUTO) 11.1 % (20.5-51.5); MEAN CORPUSCULAR HEMOGLOBIN 31 pg (27-31); MEAN CORPUSCULAR HGB CONC 33 % (32-36); MEAN CORPUSCULAR VOLUME 96 fL (79.0-98.0); MONOCYTES # (AUTO) 0.6 K/uL (0.0-1.0); MONOCYTES % (AUTO) 7.6 % (1.7-9.3); NEUTROPHILS # (AUTO) 5.9 K/uL (1.8-7.7); NEUTROPHILS % (AUTO) 80.2 % (40.0-70.0); PLATELET COUNT (AUTO) 140 K/uL (130-430); RED BLOOD CELL COUNT(AUTO) 4.91 MIL/uL (4.2-6.2); RED CELL DISTRIBUTION WIDTH 16.6 % (9.0-15.0); WHITE BLOOD COUNT (AUTO) 7.4 K/uL (4.8-10.8)
[2019-02-01 07:41] LABS: ALANINE AMINOTRANSFERASE 30 U/L (12-78); ALBUMIN 2.4 g/dL (3.4-4.8); ANION GAP 1 (5-15); ASPARTATE AMINOTRANSFERASE 26 U/L (10-37); C-REACTIVE PROTEIN QUANT 0.6 mg/dL (0-0.5); CALCIUM 9.2 mg/dL (8.4-11.0); CHLORIDE 106 mmol/L (98-107); CREATININE 0.89 mg/dL (0.55-1.30); GLUCOSE 94 mg/dL (70-99); POTASSIUM 3.1 mmol/L (3.5-5.1); SODIUM SERUM 140 mmol/L (136-145); TOTAL BILIRUBIN 0.8 mg/dL (0.0-1.0); UREA NITROGEN, BLOOD 34 mg/dL (8-21)
--- NOTE | 2019-02-01 07:59 | NUR ---
Opening Note Patient received alert and awake. Patient on otolaryngologist with a-fib. Patient on 3L oxygen via nasal cannula with no signs of distress noted. Patient has GENESIS PICC line infusing D5 1/2 NS @ 100 ml/hr. Patient has a prabhakar catheter draining yellow urine. Safety precautions in place.
[2019-02-01] MEDS: DOXYCYCLINE HYCLATE 100 MG in D5W 100 ML IV SCH ×2 (08:47→21:21)
[2019-02-01] MEDS: ASPIRIN 81 MG TABLET(ECOTRIN) PO SCH (08:48)
[2019-02-01] MEDS: GABAPENTIN 400 MG CAPSULE PO SCH ×2 (08:48→21:24)
[2019-02-01] MEDS: DOCUSATE SODIUM 100 MG CAPSULE PO SCH (08:53)
[2019-02-01] MEDS: ENOXAPARIN SODIUM 40 MG/0.4 ML SYRINGE SUBCUT SCH ×2 (08:53→21:30)
[2019-02-01 08:56] LABS: ERYTHROCYTE SEDIMENTATION RATE 2 MM/HR (0-15)
[2019-02-01] MEDS ORDERED: POTASSIUM CHLORIDE 40 MEQ in NS 250 ML IV ONE (11:00)
--- NOTE | 2019-02-01 13:40 | NUR ---
MD Carlo Velez. Spoke with office risk control representative.
[2019-02-01] MEDS ORDERED: DIGOXIN 0.5 MG/2 ML AMP IVP ONE (14:15)
--- NOTE | 2019-02-01 14:30 | NUR ---
Spoke with Dr. Velez regarding increased heart rate (110s-130s) and ordered for cardizem drip to be started at 10 mg/hr. Medication parameters given. New orders received and carried out.
[2019-02-01] MEDS: DILTIAZEM HCL 125 MG in D5W 100 ML IV SCH (14:33)
--- NOTE | 2019-02-01 15:48 | NUR ---
Patient moved to ICU bed 3.
[2019-02-01 15:56] LABS: ANION GAP 3 (5-15); CALCIUM 8.9 mg/dL (8.4-11.0); CHLORIDE 103 mmol/L (98-107); CREATININE 0.92 mg/dL (0.55-1.30); GLUCOSE 137 mg/dL (70-99); POTASSIUM 4.1 mmol/L (3.5-5.1); SODIUM SERUM 136 mmol/L (136-145); UREA NITROGEN, BLOOD 34 mg/dL (8-21)
[2019-02-01] MEDS: cefTRIAXone 1 GM in D5W 50 ML IV SCH (18:30)
--- NOTE | 2019-02-01 19:22 | NUR ---
Closing Notes Patient endorsed using SBAR format. No signs of distress noted.
--- NOTE | 2019-02-01 20:00 | NUR ---
PATIENT WAS ACCEPTED AND ASSESS DONE, PATIENT WAS TRYING TO FEED SELF, USING ONLY ONE ARM, THE LEFT , THE PATIENT WILL NEED HELP WITH THE MEAL , LIKE ICE CREAM GAVE JELLO SMEED TO ENJOY THIS, STABLE ON CARDIZUM DRIP 10 MG/HR STABLE HEART RATE IN THE 80 ANDN ALSO CONSUMED PO CARDIZUM 30 MG PO, PLAN TO WEAN PATIENT OFF DRIP ONCE MEDICATION HAD GOTTEN INTO THE SYSTEM, STABLE, KARLA PAIN , RESTING , WATCHING TV, STABLE CONDITION. 02/02/19 0130 CARDIZUM DRIP DCREASED TO 5MG/HR, HEART RATE IN THE 64-70, PATIENT IS STABLE, NO CHEST PAIN OR SOB, STAB CONDITION
[2019-02-01] MEDS: DILTIAZEM HCL 30 MG TABLET PO SCH (21:23)
[2019-02-02] VITALS (24 sets, daily range): BP systolic 100–136
[2019-02-02] MEDS: D5/0.45 NS 1,000 ML IV SCH (03:37)
--- NOTE | 2019-02-02 04:30 | NUR ---
PATIENT RESTING AT INTERVALS WELL, KARLA PAIN , WAS COUGHING THRU OUT OF THE NITE FAROOQ INTACT URINE OUT GOOD, DRINKING WATER THRU OUT THE NITE HAD HELP SOME STABLE CARDIZUM DRIP DOWN TO 5MG HEART RATE IN THE 60 , WILL TRIED TO WEAN OFF THIS AM , STABLE
[2019-02-02] MEDS ORDERED: DILTIAZEM HCL 125 MG/25 ML VIAL IV ONE (05:41)
[2019-02-02] MEDS: DILTIAZEM HCL 30 MG TABLET PO SCH ×3 (05:50→20:12)
[2019-02-02 06:11] LABS: BASOPHILS % (AUTO) 0.3 % (0.0-2.0); EOSINOPHILS # (AUTO) 0.2 K/uL (0.0-0.4); EOSINOPHILS % (AUTO) 2.3 % (0.0-4.0); HEMATOCRIT 46.9 % (36-54); HEMOGLOBIN 15.3 g/dL (14.0-18.0); LYMPHOCYTES # (AUTO) 1.1 K/uL (1.0-5.5); LYMPHOCYTES % (AUTO) 13.7 % (20.5-51.5); MEAN CORPUSCULAR HEMOGLOBIN 31 pg (27-31); MEAN CORPUSCULAR HGB CONC 33 % (32-36); MEAN CORPUSCULAR VOLUME 95 fL (79.0-98.0); MONOCYTES # (AUTO) 0.7 K/uL (0.0-1.0); MONOCYTES % (AUTO) 8.9 % (1.7-9.3); NEUTROPHILS # (AUTO) 6.1 K/uL (1.8-7.7); NEUTROPHILS % (AUTO) 74.8 % (40.0-70.0); PLATELET COUNT (AUTO) 138 K/uL (130-430); RED BLOOD CELL COUNT(AUTO) 4.91 MIL/uL (4.2-6.2); RED CELL DISTRIBUTION WIDTH 16.3 % (9.0-15.0); WHITE BLOOD COUNT (AUTO) 8.2 K/uL (4.8-10.8)
[2019-02-02 06:26] LABS: ALANINE AMINOTRANSFERASE 33 U/L (12-78); ALBUMIN 2.4 g/dL (3.4-4.8); ANION GAP 3 (5-15); ASPARTATE AMINOTRANSFERASE 29 U/L (10-37); C-REACTIVE PROTEIN QUANT 0.5 mg/dL (0-0.5); CALCIUM 8.7 mg/dL (8.4-11.0); CHLORIDE 103 mmol/L (98-107); CREATININE 0.89 mg/dL (0.55-1.30); GLUCOSE 93 mg/dL (70-99); POTASSIUM 3.7 mmol/L (3.5-5.1); SODIUM SERUM 133 mmol/L (136-145); TOTAL BILIRUBIN 0.6 mg/dL (0.0-1.0); UREA NITROGEN, BLOOD 29 mg/dL (8-21)
--- NOTE | 2019-02-02 07:15 | NUR ---
Opening Note Patient received awake and alert. Patient on social insurance adviser with a-fib. Patient on 2L oxygen via nasal cannula breathing evenly and unlabored. Patient has a GENESIS PICC infusing d5 1/2 NS @ 100 ml/hr. Patient on cardizem drip @ 5 mg/hr. Patient has a prabhakar catheter draining yellow urine. Skin intact. Safety precautions enforced.
[2019-02-02] MEDS: ENOXAPARIN SODIUM 40 MG/0.4 ML SYRINGE SUBCUT SCH ×2 (08:17→20:11)
[2019-02-02] MEDS: GABAPENTIN 400 MG CAPSULE PO SCH ×2 (08:17→20:11)
[2019-02-02] MEDS: ASPIRIN 81 MG TABLET(ECOTRIN) PO SCH (08:17)
[2019-02-02] MEDS: DOCUSATE SODIUM 100 MG CAPSULE PO SCH (08:18)
[2019-02-02] MEDS: guaiFENesin/DEXTROMETHORPHAN 10 ML UDC PO PRN (08:18)
[2019-02-02] MEDS: DOXYCYCLINE HYCLATE 100 MG in D5W 100 ML IV SCH ×2 (08:18→20:11)
[2019-02-02 09:02] LABS: ERYTHROCYTE SEDIMENTATION RATE 2 MM/HR (0-15)
--- NOTE | 2019-02-02 12:16 | NUR ---
RN Rounds Patient cleaned and assisted with ADLs. Patient in no signs of distress at this time. Patient has no complaints of pain.
--- NOTE | 2019-02-02 15:22 | NUR ---
Pilot Safety Inspector: Met with pt. to conduct a DCPA. GRAVITY PROSPECTING OPERATOR introduced self to pt. who was pleasant and able to participate in this interview. Pt. was talkative and was a good historian. Pt. confirmed that his friend, Destini Jung was his DPOA, but he did not know about any paperwork stating as such. Pt. came from [facility], but he did not know how long he had been there. Pt. stated upon D/C, he wants to go home, his home in [place] where he lives with a friend, Delvin. Pt. was charming as he was cracking jokes and seemed to be in good spirits during conversation. GRAVITY PROSPECTING OPERATOR will complete the DCPA and remain available as needed.
--- NOTE | 2019-02-02 15:55 | NUR ---
RN Rounds Patient cleaned patient. No signs of distress noted. No complaints of pain.
[2019-02-02] MEDS: cefTRIAXone 1 GM in D5W 50 ML IV SCH (17:51)
--- NOTE | 2019-02-02 19:05 | NUR ---
PM ASSESSMENT Pt in bed with eyes open resting comfortably, no signs of acute distress or discomfort noted. Pt A&O x4, able to verbalize needs. Pt on 2L O2 via NC, tolerating well with even and unlabored breathing. Pt has a GENESIS picc c/d/i, L ac iv and LFA 20g c/d/i. Gage cath noted draining urine to gravity. Pt doesn't verbalize any needs at this time. Bed is locked and in lowest position, call light within reach, will cont to monitor pt.
--- NOTE | 2019-02-02 19:12 | NUR ---
Closing Note Patient endorsed to night clerk auditor RN using SBAR format. Patient in no signs of distress.
[2019-02-02] MEDS ORDERED: DILTIAZEM HCL 30 MG TABLET ONE (20:13)
--- NOTE | 2019-02-02 23:47 | NUR ---
Called after hours pharmacy with question about pt's medication. Spoke with Jono. Asked how close diltiazem HCL 30 mg tablet could be administered because it was just administered at 2000 per EMAR schedule and it was scheduled again at 0000. Per pharmacist Jono, "administer the 0000 diltiazem at 0100 and then continue the same schedule for the morning at 0600". Will continue to monitor pt.
[2019-02-03] VITALS (18 sets, daily range): BP systolic 110–147
[2019-02-03] MEDS: DILTIAZEM HCL 30 MG TABLET PO SCH ×2 (00:58→05:36)
--- NOTE | 2019-02-03 01:30 | NUR ---
CHG CHG bath given to pt at this time. Pt tolerated well, will cont to monitor.
[2019-02-03 06:11] LABS: BASOPHILS % (AUTO) 0.4 % (0.0-2.0); EOSINOPHILS # (AUTO) 0.3 K/uL (0.0-0.4); HEMOGLOBIN 16.1 g/dL (14.0-18.0); LYMPHOCYTES % (AUTO) 11.4 % (20.5-51.5); MEAN CORPUSCULAR HEMOGLOBIN 31 pg (27-31); MEAN CORPUSCULAR HGB CONC 33 % (32-36); MEAN CORPUSCULAR VOLUME 95 fL (79.0-98.0); MONOCYTES # (AUTO) 0.6 K/uL (0.0-1.0); MONOCYTES % (AUTO) 6.9 % (1.7-9.3); NEUTROPHILS # (AUTO) 6.8 K/uL (1.8-7.7); NEUTROPHILS % (AUTO) 78.3 % (40.0-70.0); PLATELET COUNT (AUTO) 141 K/uL (130-430); RED BLOOD CELL COUNT(AUTO) 5.16 MIL/uL (4.2-6.2); RED CELL DISTRIBUTION WIDTH 16.3 % (9.0-15.0); WHITE BLOOD COUNT (AUTO) 8.8 K/uL (4.8-10.8)
[2019-02-03 06:27] LABS: ALANINE AMINOTRANSFERASE 31 U/L (12-78); ALBUMIN 2.6 g/dL (3.4-4.8); ANION GAP 2 (5-15); ASPARTATE AMINOTRANSFERASE 22 U/L (10-37); C-REACTIVE PROTEIN QUANT 1.2 mg/dL (0-0.5); CALCIUM 8.2 mg/dL (8.4-11.0); CHLORIDE 105 mmol/L (98-107); CREATININE 0.76 mg/dL (0.55-1.30); GLUCOSE 68 mg/dL (70-99); PHOSPHORUS 1.9 mg/dL (2.7-4.5); POTASSIUM 3.9 mmol/L (3.5-5.1); SODIUM SERUM 135 mmol/L (136-145); TOTAL BILIRUBIN 0.7 mg/dL (0.0-1.0); UREA NITROGEN, BLOOD 20 mg/dL (8-21)
--- NOTE | 2019-02-03 07:10 | NUR ---
ENDORSEMENT Report given to oncoming RN using SBAR format and pt care was endorsed. No signs of acute distress or discomfort noted.
--- NOTE | 2019-02-03 07:15 | NUR ---
Opening Note Received patient report from endorsing RN via SBAR communication
[2019-02-03 07:53] LABS: ERYTHROCYTE SEDIMENTATION RATE 1 MM/HR (0-15)
[2019-02-03] MEDS: ASPIRIN 81 MG TABLET(ECOTRIN) PO SCH (08:27)
[2019-02-03] MEDS: ENOXAPARIN SODIUM 40 MG/0.4 ML SYRINGE SUBCUT SCH ×2 (08:27→21:14)
[2019-02-03] MEDS: GABAPENTIN 400 MG CAPSULE PO SCH ×2 (08:27→21:10)
[2019-02-03] MEDS: DOXYCYCLINE HYCLATE 100 MG in D5W 100 ML IV SCH (08:28)
[2019-02-03] MEDS: DOCUSATE SODIUM 100 MG CAPSULE PO SCH (09:00)
[2019-02-03] MEDS ORDERED: DILTIAZEM HCL 120 MG CAP.SR.24H PO ONE (09:15)
--- NOTE | 2019-02-03 10:15 | NUR ---
Round Dr. Arias at bedside assessing patient, no new orders
--- NOTE | 2019-02-03 11:15 | NUR ---
MD Round Dr. Gardiner at bedside assessing patient, physician entered orders
--- NOTE | 2019-02-03 16:40 | NUR ---
Transfer Patient transferred to telemetry 134A via gurney. Patient in no signs of distress. Endorsed patient to manager culture using SBAR format.
--- NOTE | 2019-02-03 17:00 | NUR ---
PT TRANSFERRED Patient transferred to room 134A via hospital bed following ACLS guidelines and connected to ekg monitor while accompanied by ACLS certified nurse. Patient medications, belongings transferred at the same time. Patient tolerated well, no distress noted. Patient Report given to VIVIEN Baker at bedside.
--- NOTE | 2019-02-03 17:10 | NUR ---
PATIENT IS TRANSFERRED INTO THE UNIT. A-FIB ON MONITOR. ON O2 2L, SATTING MID 90S%
[2019-02-03] MEDS: cefTRIAXone 1 GM in D5W 50 ML IV SCH (17:51)
--- NOTE | 2019-02-03 18:34 | NUR ---
PATIENT IS EATING DINNER, TOLERATED WITHOUT DISTRESS.
[2019-02-03] MEDS: guaiFENesin/DEXTROMETHORPHAN 10 ML UDC PO PRN (18:40)
[2019-02-03] MEDS ORDERED: VANCOMYCIN HCL 1 GM/NS PREMIX 250 ML IV ONE (21:00)
[2019-02-03] MEDS: DILTIAZEM HCL 120 MG CAP.SR.24H PO SCH (21:10)
[2019-02-03] MEDS ORDERED: VANCOMYCIN HCL 1000 MG/VIAL IV ONE (21:43)
--- NOTE | 2019-02-03 23:12 | NUR ---
Patient resting quietly in bed. No acute distress noted. Will continue to monitor.
[2019-02-04 00:20] VITALS: BP_SYST 121
--- NOTE | 2019-02-04 07:18 | NUR ---
A/OX4. A-FIB ON MONITOR. ON O2 2L, SATTING MID 90S%. GENESIS PICC. CALL LIGHT IN PLACE, BED LOCKED AT THE LOWEST POSITION WITH ALARM ON. WILL CONTINUE TO MONITOR.
[2019-02-04 07:37] LABS: BASOPHILS % (AUTO) 0.3 % (0.0-2.0); EOSINOPHILS # (AUTO) 0.2 K/uL (0.0-0.4); EOSINOPHILS % (AUTO) 3.1 % (0.0-4.0); HEMATOCRIT 48.4 % (36-54); HEMOGLOBIN 15.8 g/dL (14.0-18.0); LYMPHOCYTES # (AUTO) 0.9 K/uL (1.0-5.5); LYMPHOCYTES % (AUTO) 13.2 % (20.5-51.5); MEAN CORPUSCULAR HEMOGLOBIN 31 pg (27-31); MEAN CORPUSCULAR HGB CONC 33 % (32-36); MEAN CORPUSCULAR VOLUME 95 fL (79.0-98.0); MONOCYTES # (AUTO) 0.5 K/uL (0.0-1.0); MONOCYTES % (AUTO) 7.6 % (1.7-9.3); NEUTROPHILS # (AUTO) 4.9 K/uL (1.8-7.7); NEUTROPHILS % (AUTO) 75.8 % (40.0-70.0); PLATELET COUNT (AUTO) 139 K/uL (130-430); RED BLOOD CELL COUNT(AUTO) 5.12 MIL/uL (4.2-6.2); RED CELL DISTRIBUTION WIDTH 16.2 % (9.0-15.0); WHITE BLOOD COUNT (AUTO) 6.5 K/uL (4.8-10.8)
[2019-02-04 07:54] LABS: ANION GAP 5 (5-15); C-REACTIVE PROTEIN QUANT 1.4 mg/dL (0-0.5); CALCIUM 8.9 mg/dL (8.4-11.0); CHLORIDE 103 mmol/L (98-107); CREATININE 0.75 mg/dL (0.55-1.30); GLUCOSE 81 mg/dL (70-99); POTASSIUM 3.7 mmol/L (3.5-5.1); SODIUM SERUM 136 mmol/L (136-145); UREA NITROGEN, BLOOD 18 mg/dL (8-21)
[2019-02-04] MEDS: GABAPENTIN 400 MG CAPSULE PO SCH (08:39)
[2019-02-04] MEDS: ASPIRIN 81 MG TABLET(ECOTRIN) PO SCH (08:39)
[2019-02-04] MEDS: DILTIAZEM HCL 120 MG CAP.SR.24H PO SCH (08:39)
[2019-02-04] MEDS: ENOXAPARIN SODIUM 40 MG/0.4 ML SYRINGE SUBCUT SCH (08:40)
[2019-02-04] MEDS: DOCUSATE SODIUM 100 MG CAPSULE PO SCH (09:00)
[2019-02-04 09:10] LABS: ERYTHROCYTE SEDIMENTATION RATE 1 MM/HR (0-15)
[2019-02-04] MEDS ORDERED: VANC1FRO2 IV (09:47)
[2019-02-04] MEDS ORDERED: DILT120C89 PO (09:47)
[2019-02-04] MEDS ORDERED: CEFT500V5 IJ (09:47)
[2019-02-04] MEDS ORDERED: MUPIROCIN 2% TOPICAL OINTMENT 22 GM NS ONE (10:30)
--- NOTE | 2019-02-04 11:44 | NUR ---
DC back SNF: Call and spoke to Ab at [facility] about DC patient back . He states that he will call back for the bed assignment . Send him Faxing of FS, Med list, and order.
--- NOTE | 2019-02-04 12:20 | NUR ---
COLTON DYKES CALLS BACK AND INFORMS NURSE HE WILL BE GOING TO 36A
--- NOTE | 2019-02-04 12:20 | NUR ---
DR. HUNTER IS CALLED, AND STATES THAT IT IS OKAY TO REMOVE OSEAS.
[2019-02-04 13:02] VITALS: BP_SYST 124
--- NOTE | 2019-02-04 13:10 | NUR ---
DC PLANNING: TRANSPORTATION HAS BEEN ARRANGED FOR BLS WITH [facility] @ [phone]. SPOKE WITH SALLY (DISPATCH), STOCK PULLER TIME AT 2:30PM.
--- NOTE | 2019-02-04 14:50 | NUR ---
PT TRANSFERRED Report given to COLTON DYKES. Transfer packet with Transfer Orders and Medication Reconciliation form given to EMT with report. Exitcare provided. [facility] ID band removed, replaced with ID band with pt's name and . All belongings sent with patient. Patient left floor via gurney escorted by EMT in no distress.
[2019-02-04] MEDS ORDERED: MUPIROCIN 2% TOPICAL OINTMENT 22 GM NS SCH (21:00)
[2019-02-04] MEDS ORDERED: VANCOMYCIN HCL 1,000 MG in NS 250 ML IV SCH (22:00)
== END 2019-02-04 15:00 | DRG 871 ==
LOC: SED 20:56 → STU 01-30 04:00 → SIC 01-30 21:16 → STU 02-03 16:45
PROVIDERS: ADMIT Preventive Medicine Preventive Medicine/Occupational Environmental Medicine; ATTEND Preventive Medicine Preventive Medicine/Occupational Environmental Medicine
PROC: 02HV33Z Insertion of Infusion Device into Superior Vena Cava, Percutaneous Approach (ICD-10-PCS; principal; 2019-01-31)
PROC: B548ZZA Ultrasonography of Superior Vena Cava, Guidance (ICD-10-PCS; 2019-01-31)
DX: A41.9 Sepsis, unspecified organism (principal); I21.4 Non-ST elevation (NSTEMI) myocardial infarction; J96.00 Acute respiratory failure, unspecified whether with hypoxia or hypercapnia; E43 Unspecified severe protein-calorie malnutrition; J69.0 Pneumonitis due to inhalation of food and vomit; N17.9 Acute kidney failure, unspecified; E87.0 Hyperosmolality and hypernatremia; I13.0 Hypertensive heart and chronic kidney disease with heart failure and stage 1 through stage 4 chronic kidney disease, or unspecified chronic kidney disease; I69.351 Hemiplegia and hemiparesis following cerebral infarction affecting right dominant side; Z68.1 Body mass index [BMI] 19.9 or less, adult; I50.9 Heart failure, unspecified; E83.42 Hypomagnesemia; E83.51 Hypocalcemia; E83.52 Hypercalcemia; I48.91 Unspecified atrial fibrillation; N18.3 Chronic kidney disease, stage 3 (moderate); N40.0 Benign prostatic hyperplasia without lower urinary tract symptoms; R73.9 Hyperglycemia, unspecified; Z66 Do not resuscitate; Z22.322 Carrier or suspected carrier of Methicillin resistant Staphylococcus aureus; Z79.01 Long term (current) use of anticoagulants; Z99.81 Dependence on supplemental oxygen; Z88.5 Allergy status to narcotic agent; Z88.8 Allergy status to other drugs, medicaments and biological substances; Z88.1 Allergy status to other antibiotic agents; Z79.899 Other long term (current) drug therapy; Z79.82 Long term (current) use of aspirin
CPT/HCPCS: 36415; 36600; 70450-TC; 71045; 71250-TC; 76770; 80048; 80053; 81000-TC; 82140-TC; 82550-TC; 82570-TC; 82803-TC; 83605; 83735-TC; 83880; 84100-TC; 84302-TC; 84484; 85025; 85379; 85610-TC; 85651-TC; 86140; 86710; 87040-TC; 87081; 87086; 93005; 93306; 96365; 96368; 96375; 96376; 99285; C1751; G0378; J0696; J1160; J1650; J1940; J3370; J3480; J3490; J7030; J7050; J7060

== ENCOUNTER 2019-03-29 22:22 | Inpatient (IN) | payer OTHER, MEDICAID ==
[~2019-03-29] VITALS: Ht 175.3 cm; Wt 47.3 kg
[2019-03-29 22:22] VITALS: BP_SYST 102
[~2019-03-29 22:22] MED LIST changes: +CEFT500V5 IJ; -DET2 PO; +DILT120C89 PO; -MERI500 IV; -SPIR50TA5 PO; +VANC1FRO2 IV
--- NOTE | 2019-03-29 22:40 | NUR ---
Placed in room 08 . Placed on cardiac exercise specialist, blood pressure machine and pulse oximeter. To gown for exam. Side rails up.
--- NOTE | 2019-03-29 22:40 | NUR ---
Pt BIB EMS from [facility] with c/o blood in stool. Per EMS, pt was found by [facility] staff with bright red blood from rectum. Per EMS, facility states pt approximately had 3 cups of blood from rectum. Per EMS, pt was hypotensive en route to ER with blood pressure of 59/32. Per facility, pt baseline is responsive and alert. Upon assessment, pt presents pale, with bright red blood in diaper. Pt is tachycardic at 128 bpm and blood pressure 102/67. Upon arrival pt on non-rebreather at 15 L with oxygen saturation of 100%. Breath sounds bilaterally clear. Will continue to monitor.
--- NOTE | 2019-03-29 22:40 | NUR ---
ER Dr. Meza at bedside examining patient.
[2019-03-29] MEDS ORDERED: NACL 0.9% 1,000 ML IV SCH (22:41)
--- NOTE | 2019-03-29 22:45 | NUR ---
# 22 gauge angiocath placed to rac. Use of asceptic technique. Opsite placed over site. Blood return noted. Blood for lab drawn from site. Flushed with 10 cc of normal saline. No evidence of infiltration noted. Patient tolerated well.
--- NOTE | 2019-03-29 23:20 | NUR ---
Lab at bedside.
[2019-03-29 23:40] LABS: BASOPHILS # (AUTO) 0.1 K/uL (0.0-0.2); BASOPHILS % (AUTO) 0.4 % (0.0-2.0); EOSINOPHILS % (AUTO) 0.1 % (0.0-4.0); HEMATOCRIT 46.2 % (36-54); HEMOGLOBIN 14.6 g/dL (14.0-18.0); LYMPHOCYTES # (AUTO) 1.9 K/uL (1.0-5.5); LYMPHOCYTES % (AUTO) 13.5 % (20.5-51.5); MEAN CORPUSCULAR HEMOGLOBIN 30 pg (27-31); MEAN CORPUSCULAR HGB CONC 32 % (32-36); MEAN CORPUSCULAR VOLUME 94 fL (79.0-98.0); MONOCYTES # (AUTO) 0.8 K/uL (0.0-1.0); MONOCYTES % (AUTO) 5.9 % (1.7-9.3); NEUTROPHILS # (AUTO) 11.2 K/uL (1.8-7.7); NEUTROPHILS % (AUTO) 80.1 % (40.0-70.0); PLATELET COUNT (AUTO) 219 K/uL (130-430); RED CELL DISTRIBUTION WIDTH 15.8 % (9.0-15.0)
[2019-03-29 23:57] LABS: ANION GAP 10 (5-15); CALCIUM 10.2 mg/dL (8.4-11.0); CHLORIDE 102 mmol/L (98-107); CREATININE 1.79 mg/dL (0.55-1.30); GLUCOSE 211 mg/dL (70-99); POTASSIUM 3.9 mmol/L (3.5-5.1); SODIUM SERUM 139 mmol/L (136-145); UREA NITROGEN, BLOOD 63 mg/dL (8-21)
[2019-03-30] VITALS (16 sets, daily range): BP systolic 72–188
[2019-03-30 00:01] LABS: ALANINE AMINOTRANSFERASE 28 U/L (12-78); ALBUMIN 2.7 g/dL (3.4-4.8); ASPARTATE AMINOTRANSFERASE 29 U/L (10-37); TOTAL BILIRUBIN 1.1 mg/dL (0.0-1.0)
--- NOTE | 2019-03-30 00:10 | NUR ---
VIVIEN Brooks at bedside medicating pt.
[2019-03-30 00:29] LABS: INR 1.7 (0.80-1.20); PROTHROMBIN TIME 17.1 SECS (9.5-12.5)
[2019-03-30] MEDS ORDERED: POTASSIUM CHLORIDE 20 MEQ in D5NS 1,000 ML IV SCH (00:49)
[2019-03-30] MEDS ORDERED: LevALBUTEROL HCL 1.25 MG/0.5 ML *CONC.* VIAL.NEB (XOPENEX CONC.) INH PRN ×2 (01:00→02:30)
--- NOTE | 2019-03-30 01:03 | NUR ---
APatient will be admitted to care of [facility]. Admitted to TELEMETRY unit.. Belongings list completed. Complete and up to date summary report printed. SBAR report to be given at bedside with opportunity for questions.
[2019-03-30] MEDS ORDERED: LEVA1.2527 INH (02:14)
[2019-03-30] MEDS ORDERED: MEGE40TA PO (02:14)
[2019-03-30] MEDS ORDERED: METO25TA6 PO (02:14)
[2019-03-30] MEDS ORDERED: FURO-149 PO (02:14)
[2019-03-30] MEDS ORDERED: POLY17PO4 PO (02:14)
[2019-03-30] MEDS ORDERED: POTA10TA15 PO (02:14)
[2019-03-30] MEDS ORDERED: AMI200 PO (02:14)
[2019-03-30] MEDS ORDERED: APIX5TAB PO (02:14)
--- NOTE | 2019-03-30 02:14 | NUR ---
Medication reconciliation completed with information provided by Joshua Thomas. Any prior medication reconciliation on file was reviewed and corrected.
--- NOTE | 2019-03-30 02:20 | NUR ---
Transfer to telemetry bed 114B via ACLS protocol. Licensed nurse present. IV present no signs or symptoms of infiltration.
[2019-03-30] MEDS: POTASSIUM CHLORIDE 20 MEQ in D5NS 1,000 ML IV SCH ×3 (02:30→22:32)
--- NOTE | 2019-03-30 02:36 | NUR ---
ADMISSION: The patient, ARCELIA SANDERS, 79 y/o, M admitted by Dr. Garrido with diagnosis of Lower GI bleed; primary nurse at bedside was given written information regarding hospital policies, unit procedures and contact persons.
--- NOTE | 2019-03-30 04:30 | NUR ---
Pt is sleeping comfortably in bed. Awaiting IVF from medical housekeeper.
--- NOTE | 2019-03-30 05:39 | NUR ---
CONSULTATION PAGED/CALLED Reason for Consultation: LOWER GI BLEED Person Who was Notified: JOB Consulting Physician: DR. SWIFT; HAND II TUBE BENDER - JENIFFER Ordering Physician: DR. RAYMOND
[2019-03-30] MEDS ORDERED: KCL 20 mEq in D5NS 1000 mL 1,000 ML IV ONE (05:58)
--- NOTE | 2019-03-30 07:00 | NUR ---
Pt is awake and resting quietly in bed. All pt's needs were attended to. IVF is infusing well in RAC. Fall and safety precautions are in place. Will endorse to day shift nurse.
--- NOTE | 2019-03-30 07:30 | NUR ---
received report from kee nurse. patient both eyes closed and non verbal, but cold and clammy. vitals signs taken temp 95.6 hr 108 respiration 22, bp 84/71. has iv access on rt ac #22 with iv fluids D5NS +20kcl at 100cc/hr infusing on well. bed low position alarmed and locked. on 15 liters of non rebreather mask on. will continue to monitor patients status.
[2019-03-30] MEDS ORDERED: DIATR MEGLU/DIATRIZ SOD 30 ML SOLUTION PO ONE (08:22)
--- NOTE | 2019-03-30 08:28 | NUR ---
CONSULTATION PAGED/CALLED Reason for Consultation: [] SOB Person Who was Notified: [] SETH Consulting Physician: [] DR ALLEN Lab Intern Specialty: [] PULMO Ordering Physician: [] DR RAYMOND
[2019-03-30] MEDS ORDERED: NOREPINEPHRINE BITARTRATE 4 MG in D5W 246 ML IV PRN (08:30)
--- NOTE | 2019-03-30 08:30 | NUR ---
vitals taken bp 104/76. still cold and clammy. respiratory therapist on the bedside doing ABG stat.
--- NOTE | 2019-03-30 08:50 | NUR ---
brought and transfer patient to ICU -8. sbar report given to REYNA PUGA. abg resulted and spoke to Dr Pereira.
--- NOTE | 2019-03-30 08:53 | NUR ---
Opening Note Patient received with eyes closed and is difficult to arouse. Patient with cool, clammy, and pale skin. Patient attempted to be aroused with painful stimuli with minimal response. Patient connected to equipment monitor phototypesetting with a-fib, BP 91/69. Patient received with nonrebreather mask that is changed to 10L oxygen via simple mask with saturation of 100%, no signs of visible distress noted. Safety precautions enforced at this time.
--- NOTE | 2019-03-30 08:54 | NUR ---
MD report Spoke with Dr. Pereira regarding patient's condition, new orders received.
[2019-03-30] MEDS ORDERED: NS 500 ML IV ONE ×2 (09:00→20:45)
[2019-03-30] MEDS ORDERED: PANTOPRAZOLE SODIUM 40 MG/VIAL (PROTONIX) IVP SCH (09:00)
[2019-03-30] MEDS ORDERED: METOPROLOL TARTRATE 25 MG TABLET PO SCH (09:00)
[2019-03-30] MEDS: METOPROLOL TARTRATE 25 MG TABLET PO SCH ×2 (09:00→21:00)
[2019-03-30] MEDS ORDERED: AMIODARONE HCL 200 MG TABLET PO SCH ×2 (09:00)
--- NOTE | 2019-03-30 09:42 | NUR ---
Nutrition Update Facundo Scale 13 noted. Pt admitted for lower GI bleed. Diet: N/A BMI: 15.4 kg/m2 RD to follow per nutrition care standards.
[2019-03-30] MEDS: PANTOPRAZOLE SODIUM 40 MG/VIAL (PROTONIX) IVP SCH ×2 (10:29→20:53)
--- NOTE | 2019-03-30 12:00 | NUR ---
RN Rounds Patient remains lethargic but arousable to painful stimuli. Patient not communicating verbally at this time but able to nod when asked questions. Patient in no signs of distress. Call light within reach.
--- NOTE | 2019-03-30 13:40 | NUR ---
CHG CHG performed and linens changed. Patient tolerated procedure well.
--- NOTE | 2019-03-30 15:40 | NUR ---
MD Rounds Dr. Garrido at bedside for examination. New orders received.
--- NOTE | 2019-03-30 16:49 | NUR ---
CONSULTATION PAGED PRIORITY: ROUTINE REASON FOR CONSULTATION?:RENAL FAILURE WAS CONSULT CALLED:Y PERSON WHO WAS NOTIFIED:JESUS CONSULTING PHYSICIAN:CARSON LOZANO SALES OPERATIONS ASSISTANT SPECIALTY:NEPHROLOGY SALES OPERATIONS ASSISTANT PHONE NUMBER:[phone] REQUESTING PHYSICIAN:JOSE TERAN
[2019-03-30] MEDS ORDERED: NACL 0.9% 1,000 ML IV ONE (17:50)
--- NOTE | 2019-03-30 18:17 | NUR ---
Attempted prabhakar catheter insertion by two RN's without success. Patient remains lethargic and unable to open eyes. Patient responds to painful stimuli by grimacing but is not able to respond verbally.
[2019-03-30] MEDS ORDERED: PHYTONADIONE 10 MG in NS 50 ML IV ONE (18:30)
[2019-03-30 18:32] LABS: HEMATOCRIT 45.4 % (36-54); HEMOGLOBIN 14.2 g/dL (14.0-18.0); MEAN CORPUSCULAR HEMOGLOBIN 30 pg (27-31); MEAN CORPUSCULAR HGB CONC 31 % (32-36); MEAN CORPUSCULAR VOLUME 95 fL (79.0-98.0); PLATELET COUNT (AUTO) 189 K/uL (130-430); RED BLOOD CELL COUNT(AUTO) 4.78 MIL/uL (4.2-6.2)
--- NOTE | 2019-03-30 18:35 | NUR ---
Bloody stools noted at this time. Informed Dr. Jung who is at bedside.
[2019-03-30 18:37] LABS: ANION GAP 12 (5-15); CALCIUM 10.6 mg/dL (8.4-11.0); CHLORIDE 107 mmol/L (98-107); CREATININE 1.96 mg/dL (0.55-1.30); GLUCOSE 178 mg/dL (70-99); SODIUM SERUM 140 mmol/L (136-145); UREA NITROGEN, BLOOD 88 mg/dL (8-21)
[2019-03-30 18:38] LABS: WHITE BLOOD COUNT (AUTO) 32.6 K/uL (4.8-10.8)
[2019-03-30 18:43] LABS: ALANINE AMINOTRANSFERASE 26 U/L (12-78); ALBUMIN 2.8 g/dL (3.4-4.8); ASPARTATE AMINOTRANSFERASE 23 U/L (10-37)
[2019-03-30 18:45] LABS: BAND % (MANUAL) 13 % (0-6); BASOPHILS % (MANUAL) 0 % (0-2); EOSINOPHILS % (MANUAL) 0 % (0-7); LYMPHOCYTES % (MANUAL) 1 % (20-46); MONOCYTES % (MANUAL) 1 % (0-11)
--- NOTE | 2019-03-30 18:48 | NUR ---
Infusing 1 liter normal saline per MD order.
--- NOTE | 2019-03-30 18:48 | NUR ---
PICC RN at bedside for PICC insertion.
[2019-03-30 19:05] LABS: INR 1.4 (0.80-1.20); PROTHROMBIN TIME 13.9 SECS (9.5-12.5)
--- NOTE | 2019-03-30 19:25 | NUR ---
PM SHIFT ASSESSMENT Pt is lethargic, responds to painful stimuli only. O2 via simple mask. AFIB W/RVR on monitor. Skin warm and dry. PICC line to ALIZA. Safety precautions in place, call light within reach. Will continue to monitor.
--- NOTE | 2019-03-30 19:40 | NUR ---
Closing Note Patient endorsed to shift stacker RN using SBAR.
[2019-03-30] MEDS ORDERED: PHYTONADIONE 10 MG/ML AMP ONE (20:58)
--- NOTE | 2019-03-30 21:10 | NUR ---
Spoke to Dr. Toñito MD aware of patients BP and HR. Orders to give 500ml bolus, start Levophed if SBP below 90 and call back if HR does not stabilize. Will carry out orders.
--- NOTE | 2019-03-30 21:15 | NUR ---
FAROOQ CATH: # 16 FR Farooq catheter with 10 cc bulb inserted with use of sterile technique. Bulb inflated with 10 cc sterile water. Immediate return of 50 cc beth urine noted. Bedside drainage bag placed below level of bladder. Urine sample collected and sent to lab at 2114. Pt tolerated procedure well.
[2019-03-30] MEDS ORDERED: SODIUM BICARBONATE 8.4% VIAL 100 MEQ in D5W 1,000 ML IV SCH (21:20)
--- NOTE | 2019-03-30 21:23 | NUR ---
Spoke to Dr. Pereira, ABG results given and orders to change IVF. Will carry out orders.
[2019-03-30] MEDS ORDERED: SODIUM BICARBONATE 8.4% VIAL 50 MEQ/50 ML VIAL ONE (21:49)
[2019-03-30] MEDS ORDERED: PIPERACILLIN/TAZOBACTAM 2.25 GM VIAL IV ONE (22:11)
[2019-03-30] MEDS: PIPERACILLIN/TAZO 2.25G/DEX-IS 50 ML IV SCH (22:31)
[2019-03-30] MEDS ORDERED: DIGOXIN 0.5 MG/2 ML AMP IVP ONE (23:15)
--- NOTE | 2019-03-30 23:17 | NUR ---
Spoke to Dr. Toñito MD aware patients HR still in AFIB w/RVR 140's. Orders to give Digoxin IVP, no further orders. Will carry out.
[2019-03-31] VITALS: BP_SYST 58
[2019-03-31 01:00] VITALS: BP_SYST 72
[2019-03-31] MEDS ORDERED: NOREPINEPHRINE 4 MG/4 ML VIAL IV ONE (01:49)
[2019-03-31 02:00] VITALS: BP_SYST 74
[2019-03-31 03:00] VITALS: BP_SYST 93
[2019-03-31] MEDS: PIPERACILLIN/TAZO 2.25G/DEX-IS 50 ML IV SCH (03:06)
[2019-03-31 04:00] VITALS: BP_SYST 94
--- NOTE | 2019-03-31 05:00 | NUR ---
STAT PAGE TO DR. RAYMOND Spoke to Dr. Hema MD informed that patients condition changed, HR dropping from 140's to 30's. Informed MD that patient is DNR status, no new orders given per MD.
--- NOTE | 2019-03-31 05:04 | NUR ---
Patient Patients HR began dropping on the monitor, unable to obtain BP or O2 reading. Asystole shown on monitor, patients pupils fixed bilaterally, no heart tones auscultated and unable to obtain pulse on doppler. Jevon RN at bedside to verify patient findings. Patient is DNR status. Patient pronounced at 0504.
--- NOTE | 2019-03-31 05:20 | NUR ---
FAMILY CONTACTED: HANSEL DAIGLE WAS CONTACTED AT , AND THE LINE WAS BUSY. WE WILL TRY AGAIN TO REACH HER.
--- NOTE | 2019-03-31 05:30 | NUR ---
[facility] SPOKE WITH CORBY, INFORMED HIM OF PATIENT EXPIRATION. PATIENT IS NOT A CANDIDATE FOR DONATION. REFERAL NUMBER: [id number]
--- NOTE | 2019-03-31 05:40 | NUR ---
STORE CLERK CASHIER CONTACTED: STORE CLERK CASHIER'S OFFICE WAS CONTACTED. CONTACTS NAME IS JOSE. SHE INFORMED ME THAT THIS WAS NOT A STORE CLERK CASHIER'S CASE BECAUSE THE PATIENT OF NATURAL CAUSES, IS 79, AND THE FAMILY'S CONTACT IS ON FILE, EVEN THOUGH IT'S BUSY WHEN WE CALL IT.
--- NOTE | 2019-03-31 06:00 | NUR ---
MORTUARY Called [facility] for body tile picker since patient has no mortuary wishes. Spoke to Tamie and was informed that they are completely full and unable to take any patients at this time. calendering supervisor informed.
--- NOTE | 2019-03-31 06:38 | NUR ---
INFORMED PT DR LINDSEY CALLED [phone] SPOKE TO KIP MALAVE CALLED [phone] SPOKE TO KIP SWIFT CALLED [phone] SPOKE TO KIP ALLEN CALLED [phone] SPOKE TO KIP
--- NOTE | 2019-03-31 07:37 | NUR ---
Called social science research assistant left a message to determine who the next of kin is. The face sheet shows Reyna Poole as next of kin however the phone number listed [phone] is not reaching a working number. Unable to inform next of kin.
--- NOTE | 2019-03-31 07:40 | NUR ---
Opening Note Received plan of care via sbar from endorsing VIVIEN Izaguirre. Completed patient round.
--- NOTE | 2019-03-31 08:05 | NUR ---
Attemped to call Reyna Poole friend listed on facesheet. [phone]. Tried many times and phone line busy. Bedside Rn attempted to call at the beginning of the shift and reported that the phone line had a funny ring tone and then went . Pt to be transported to our holding room as [facility] is full. renovation plant supervisor is aware.
--- NOTE | 2019-03-31 09:58 | NUR ---
Compound Finisher: respond to inquiry from house sup. re holding room being full now that pt. has passed, no family. DISPENSARY CLERK called [facility] ([phone]) to notify them of this pts. passing and there is no family involved. James stated they are full and agreed to begin processing this pt. DISPENSARY CLERK will fax over a cover sheet with notes re. pt Nino time of . DISPENSARY CLERK will remain available as needed. Addendum: 03/31/19 at 1058 by Citlalli Cai MSW Compound Finisher follow up re. the passing of pt./ arrangements DISPENSARY CLERK called [facility] spoke to Dangelo Arias. She was not aware of the passing of pt. Juana stated indeed, pt did not have any family. She stated the pt file went to medical records, but she will try to see if any prior mortuary arrangements had been made. Juana will call DISPENSARY CLERK back.DISPENSARY CLERK will remain available as needed. Addendum: 03/31/19 at 1207 by Citlalli Cai MSW hotel services sales representative follow up DISPENSARY CLERK called Juana back at [facility]. She stated she tried calling the family friend listed on the face sheet, Chasity Poole, but to no avail. There was no response. Juana looked up the previous file she had access to and stated pt. did not specify any morturary arrangements. Juana then contacted their hospital social worker who looked into pts. previous placement, [facility] and there are no morturary arrangements that had been made. DISPENSARY CLERK thanked her for her dilligengence. DISPENSARY CLERK will remain available as needed. Addendum: 04/02/19 at 1009 by Citlalli Cai DISPENSARY CLERK Compound Finisher: follow up DISPENSARY CLERK received msg. from DIANNA Case, pt. Jacobs body was taken to another mortuary. DISPENSARY CLERK called and spoke to Kati at [facility]. asking her to disregard paperwork.
== END 2019-03-31 05:04 | disposition expired | DRG 377 ==
LOC: SED 22:22 → STU 03-30 00:49 → SED 03-30 02:20 → STU 03-30 03:56 → SIC 03-30 08:38
PROVIDERS: ADMIT Family Medicine; ATTEND Family Medicine
PROC: 02HV33Z Insertion of Infusion Device into Superior Vena Cava, Percutaneous Approach (ICD-10-PCS; principal; 2019-03-30)
PROC: B548ZZA Ultrasonography of Superior Vena Cava, Guidance (ICD-10-PCS; 2019-03-30)
DX: K92.2 Gastrointestinal hemorrhage, unspecified (principal); E43 Unspecified severe protein-calorie malnutrition; J96.00 Acute respiratory failure, unspecified whether with hypoxia or hypercapnia; D68.59 Other primary thrombophilia; N17.9 Acute kidney failure, unspecified; I13.0 Hypertensive heart and chronic kidney disease with heart failure and stage 1 through stage 4 chronic kidney disease, or unspecified chronic kidney disease; I48.20 Chronic atrial fibrillation, unspecified; N18.4 Chronic kidney disease, stage 4 (severe); I50.22 Chronic systolic (congestive) heart failure; Z68.1 Body mass index [BMI] 19.9 or less, adult; J44.9 Chronic obstructive pulmonary disease, unspecified; F03.90 Unspecified dementia, unspecified severity, without behavioral disturbance, psychotic disturbance, mood disturbance, and anxiety; D72.829 Elevated white blood cell count, unspecified; I95.9 Hypotension, unspecified; Z66 Do not resuscitate; N40.0 Benign prostatic hyperplasia without lower urinary tract symptoms; Z87.891 Personal history of nicotine dependence; Z79.01 Long term (current) use of anticoagulants; Z88.5 Allergy status to narcotic agent; Z88.8 Allergy status to other drugs, medicaments and biological substances; Z88.6 Allergy status to analgesic agent; Z79.899 Other long term (current) drug therapy; Z79.82 Long term (current) use of aspirin; Z87.440 Personal history of urinary (tract) infections; Z86.73 Personal history of transient ischemic attack (TIA), and cerebral infarction without residual deficits
CPT/HCPCS: 36415; 36600; 71045; 74018; 80053; 82803-TC; 85007; 85025; 85027; 85379; 85384-TC; 85610-TC; 85730-TC; 86886; 86900; 86901; 87081; 93005; 96360; 99291; C1751; C9113; J1160; J2543; J3430; J3480; J7030; J7040; J7042; J7060; J7612; Q9964